=== PATIENT | male | born 1975 | race American Indian/Alaskan Native ===

== ENCOUNTER 2019-12-29 10:55 | Day surgery (SDC) | payer OTHER ==
[2019-12-29] MEDS ORDERED: SODIUM CHLORIDE 0.9% 1000 ML 1,000 ML ONE ×2 (11:28→12:04)
[2019-12-29] MEDS ORDERED: SODIUM CHLORIDE 0.9% 1000 ML 1,000 ML IV SCH (12:45)
--- NOTE | 2019-12-29 12:53 | Anesthesia Day of Surgery ---
Anesthesia Day of Surgery - Day of Surgery Patient Examined: Yes Patient H&P Reviewed: Yes Patient is NPO: Yes
--- NOTE | 2019-12-29 12:54 | Anesthesia Consultation ---
Anesthesia Consult and Med Hx Date of service: 12/29/19 - Airway Anesthetic Teeth Evaluation: Good ROM Head & Neck: Adequate Mental/Hyoid Distance: Adequate Mallampati Class: Class II Intubation Access Assessment: Good - Pre-Operative Health Status ASA Pre-Surgery Classification: ASA2 Proposed Anesthetic Plan: MAC - Pulmonary Hx Smoking: No - Cardiovascular System Hx Valvular Heart Disease: Yes (MVP. Pt reports recent negative ETT) - Endocrine Hx Non-Insulin Dependent Diabetes: No Hx Thyroid Disease: No - Hematic Hx Sickle Cell Disease: No
[2019-12-29] MEDS ORDERED: propofoL 200 MG/20 ML VIAL IV ONE ×2 (12:56→13:01)
[2019-12-29] MEDS ORDERED: ONDANSETRON 4 MG/2 ML INJ ONE (12:56)
[2019-12-29] MEDS ORDERED: LIDOCAINE MPF (2%) 20 MG/1 ML VIAL 5 ML ONE (13:00)
--- NOTE | 2019-12-29 13:23 | Procedure Note ---
Date of procedure: 12/29/19 Pre-op diagnosis: Colon Polyp Screening/ F/H/O Colon Cancer (both parents) Post-op diagnosis: other (No Colon Polyp or diverticular Disease noted/ Minor Internal Hemorrhoid) Procedure: Colonoscopy Anesthesia: MAC Surgeon: BIBI HO Estimated blood loss: minimal Pathology: none Specimen disposition: to lab Condition: stable Disposition: same day (Resume home medication and follow up in 1 to 2 weeks ([phone]).)
--- NOTE | 2019-12-29 13:38 | Operative Report ---
PROCEDURE: Colonoscopy. INDICATIONS: This is a 44-year-old -[place] gentleman with a strong family history of cancer. Both his parents have had colon cancer. Colonoscopy was done as part of colon polyp screening. DESCRIPTION OF PROCEDURE: Initial rectal exam was unremarkable. Instrument was passed through the rectum onto the cecum, which was identified with ileocecal valve and appendiceal orifice. The colon was also visualized on the retroverted view. No additional pathology was noted. The scope was withdrawn up to the hepatic flexure and reintroduced to the cecum. The cecum, ascending colon, transverse colon, descending colon, and sigmoid showed normal mucosa. In the descending colon, there was one area that showed that there may have been a polyp, but on further and better evaluation, no polyps were noted. The rectum showed some minor internal hemorrhoid on the retroverted view. ASSESSMENT: Colon polyp screening, family history of colon cancer, the patient's parents have had colon cancer. Minor internal hemorrhoid. No colon polyps or diverticula noted. There was no bleeding associated with the procedure. No complications associated with the procedure. The patient will be asked to resume home medication and follow up in the office in 1-2 weeks' time. Procedure was done in the GI lab with the assistance of the GI lab team, which included RN, Ashley Garcia; Chandrakant robledo and with the assistance of anesthesia. JOB# [id number] MANUELA/ROXANN
[2019-12-29 14:01] VITALS: BP 107/72
--- NOTE | 2019-12-29 14:04 | Post Anesthesia Evaluation ---
- Post Anesthesia Evaluation Patient Participated: Yes Airway Patent: Yes Stable Respiratory Function: Yes Nausea/Vomiting: No Temp > 96.8F: Yes Pain Manageable: Yes Adequeate Hydration: Yes Anesthesia Complications: No Block Receding Appropriately: Not Applicable Patient on Ventilator: No
== END 2019-12-29 10:56 | disposition home or self-care (01) ==
LOC: GIO 10:55
DX: Z12.11 Encounter for screening for malignant neoplasm of colon (principal); K64.8 Other hemorrhoids; Z80.0 Family history of malignant neoplasm of digestive organs; Z72.89 Other problems related to lifestyle
CPT/HCPCS: 45378; J2405; J2704; J7030